=== PATIENT | male | born 1960 | race Caucasian/White ===

== ENCOUNTER 2018-03-19 12:11 | Emergency (ER) | payer BC ==
[~2018-03-19] VITALS: Ht 193 cm; Wt 120.0 kg
[2018-03-19 12:15] VITALS: BP 129/77; PULSE 82; RESP 16; TEMP 98.8; O2SAT 99
[2018-03-19] MEDS ORDERED: METO25TA3 PO (13:03)
[2018-03-19] MEDS ORDERED: ALLO100T PO (13:03)
[2018-03-19] MEDS ORDERED: ACYC800T PO (13:09)
--- NOTE | 2018-03-19 13:09 | PD ---
HPI Chief Complaint: Skin Problem Time Seen by Provider: 12:25 Travel History International Travel<30 days: No Contact w/Intl Traveler<30days: No Traveled to known affect area: No History of Present Illness HPI 58-year-old male presents to the emergency department with complaint of a " staph infection or a shingles outbreak" to his left lateral forehead area that started this morning. He says he has history of shingles outbreak on his face and staph infection on his leg. Denies the rash is painful or itchy. Says the area feels numb and swollen. Denies fever, vomiting. Has not taken any medications or trying treatments to alleviate his symptoms. Symptoms are moderate in severity. No known aggravating or relieving factors. Primary CARE providers in [place]. Allergies to penicillin. History of atrial fibrillation and gout. PFSH Past Medical History Cardiovascular Problems: Yes Social History Tobacco Use: No Allergies-Medications (Allergen,Severity, Reaction): Coded Allergies: Penicillins (Verified Allergy, Unknown, 03/19/18) Reported Meds & Prescriptions Reported Meds & Active Scripts Active Acyclovir 800 Mg Tab 800 Mg PO 5 TIMES A DAY 7 Days Reported Allopurinol 100 Mg Tab 400 Mg PO DAILY Metoprolol Tartrate 25 Mg Tab Unknown Dose PO DAILY Review of Systems Except as stated in HPI: all other systems reviewed are Neg Physical Exam Narrative GENERAL: Well-nourished, well-developed patient, in no acute distress SKIN: Warm and dry. There is a small, less than 0.5 cm, area to the left lateral forehead that appears to be a possible scratch or flaky skin. It does not seem to be consistent with shingles or any type of infection. The area has no erythema, edema, drainage. It is not vesicular appearing. It is not painful to touch. HEAD: Atraumatic. Normocephalic. EYES: Pupils equal and round. No scleral icterus. No injection or drainage. ENT: Mucosa pink and moist. Airway patent. NECK: Trachea midline. CARDIOVASCULAR: Regular rate. RESPIRATORY: No accessory muscle use. GASTROINTESTINAL: Rounded. MUSCULOSKELETAL: No obvious deformities. No clubbing. No cyanosis. No edema. NEUROLOGICAL: Awake and alert. Oriented 3. No obvious cranial nerve deficits. Motor grossly within normal limits. Normal speech. PSYCHIATRIC: Appropriate mood and affect; insight and judgment normal. Data Data Last Documented VS Vital Signs Date Time Temp Pulse Resp B/P (MAP) Pulse Ox O2 Delivery O2 Flow Rate FiO2 03/19/18 12:15 98.8 82 16 129/77 (94) 99 Orders Orders Ed Discharge Order (03/19/18 13:10) MDM Medical Decision Making Medical Screen Exam Complete: Yes Emergency Medical Condition: Yes Medical Record Reviewed: Yes Differential Diagnosis Dry skin, rash, scratch, medical clearance, less likely shingles or staph infection Narrative Course 58-year-old male with questionable scratch/rash/nonspecific skin eruption to his left lateral forehead that he noticed this morning. He has pimple-like skin to his entire face and it appears like the area was maybe scratched. It also is flaky and may just be an area of dry skin. I am not exactly sure what it is but it does not appear infected or consistent with shingles. Discussed staph infection and shingles. The patient is adamant about getting a prescription because he is concerned it is shingles. I will give the patient a prescription for acyclovir, per his request. Instructed patient to follow-up with inspector process. Instructed patient to follow up with primary care provider. Patient verbalizes understanding and agreement with treatment plan. Patient is medically cleared and stable for discharge. Discussed reasons to return to the emergency department. Patient agrees with treatment plan. The patients vital signs are stable and the patient is stable for outpatient follow- up and treatment. Patient discharged home, stable and in no acute distress. Diagnosis Primary Impression: Rash and other nonspecific skin eruption Referrals: Lace Mender Primary Care Physician Patient Instructions: General Instructions Additional Instructions: Follow-up with primary care provider Follow-up with inspector process Med/Other Pt SpecificInfo: Prescription(s) given Scripts Acyclovir (Acyclovir) 800 Mg Tab 800 MG PO 5 TIMES A DAY for Mgmt Viral Infection for 7 Days, TAB 0 Refills Prov: Kelley Perez 03/19/18 Disposition: 01 DISCHARGE HOME Condition: Stable Kelley Perez March 19, 2018 13:09
== END 2018-03-19 13:15 | disposition home or self-care (01) ==
LOC: NEPD 12:11
DX: R21 Rash and other nonspecific skin eruption (principal); I48.91 Unspecified atrial fibrillation; M10.9 Gout, unspecified; Z86.79 Personal history of other diseases of the circulatory system
CPT/HCPCS: 99283